=== PATIENT | female | born 1930 | race Caucasian/White ===

== ENCOUNTER 2017-06-22 20:51 | Inpatient (IN) ==
[2017-06-22] MEDS ORDERED: NITROGLYCERIN 2% OINT 1 INCH/GM PACK TOP STA (22:00)
[2017-06-22] MEDS ORDERED: ALUM/MAG/SIMETH/LIDO VISC 1:1 30 ML BOTTLE PO STA (22:06)
[2017-06-22] MEDS ORDERED: MORPHINE 2 MG/1 ML SYRINGE IV STA (22:06)
[2017-06-22] MEDS ORDERED: ONDANSETRON 4 MG/2 ML VIAL IV STA (22:06)
[2017-06-22] MEDS ORDERED: ONDANSETRON 4 MG/2 ML VIAL ONE (22:12)
[2017-06-22] MEDS ORDERED: ALUM/MAG/SIMETH/LIDO VISC 1:1 30 ML BOTTLE PO ONE (22:12)
[2017-06-22] MEDS ORDERED: MORPHINE 4 MG/1 ML VIAL ONE (22:12)
[2017-06-22] MEDS ORDERED: NITROGLYCERIN 2% OINT 1 INCH/GM PACK TOP ONE (22:12)
[2017-06-22 22:37] LABS: Basophils % 0.6 % (0.0-0.8); Eosinophils % 0.2 % (0.00-10.9); Hematocrit 33.6 VOL% (35.7-47.0); Hemoglobin 10.8 GM/DL (12.0-16.0); Immature Granulocytes % 0.5 %; Immature Granulocytes Absolute 0.03 #; Lymphocytes # 2.1 10*3/uL (1.4-4.0); Lymphocytes % 33.5 % (21.3-54.2); Mean Corpuscular HGB Conc 32.1 GM/DL (32-36); Mean Corpuscular Hemoglobin 30 PG (27-34); Mean Corpuscular Volume 93.6 FL (87-102); Monocytes # 0.5 10*3/uL (0.11-0.8); Monocytes % 8.2 % (1.7-12.7); Neutrophils # 3.6 10*3/uL (1.4-7.4); Platelet Count 286 T/CUMM (130-400); Red Blood Count 3.59 MC/CUMM (3.8-5.5); Red Cell Distribution Width 14.5 % (9.3-17.3); White Blood Count 6.4 T/CUMM (4-12)
[2017-06-22 22:41] LABS: Albumin 3.4 G/DL (3.4-5.0); Bilirubin,Total 0.4 MG/DL (0.2-1.0); Calcium 8.8 MG/DL (8.5-10.1); Osmolality,Calculated 278.8 MOS/KG (273-304); PT Patient Result 10.2 SECS; Total Protein 7.4 G/DL (6.4-8.3)
[2017-06-22] MEDS ORDERED: hydrALAZINE 20 MG/1 ML VIAL IV STA (23:45)
[2017-06-23] MEDS ORDERED: hydrALAZINE 20 MG/1 ML VIAL ONE (00:13)
[2017-06-23] MEDS ORDERED: MAGNESIUM SULF RIDER 2 GM in PREMIX 1 EACH IV PRN (01:37)
[2017-06-23] MEDS ORDERED: MAGNESIUM SULF RIDER 4 GM in PREMIX 1 EACH IV PRN (01:37)
[2017-06-23] MEDS ORDERED: BUMETANIDE 1 MG TABLET PO PRN (01:37)
[2017-06-23] MEDS ORDERED: ONDANSETRON 4 MG/2 ML VIAL IV PRN (01:37)
[2017-06-23] MEDS ORDERED: cloNIDine 0.1 MG TABLET PO PRN ×2 (01:37→10:00)
[2017-06-23] MEDS ORDERED: ED A HIST PO PRN (01:37)
[2017-06-23] MEDS ORDERED: MORPHINE 4 MG/1 ML VIAL IV PRN (01:37)
[2017-06-23] MEDS: SODIUM CHLORIDE 0.9% 1,000 ML IV SCH (02:30)
[2017-06-23] MEDS: NITROGLYCERIN 2% OINT 1 INCH/GM PACK TOP SCH ×2 (02:41→05:10)
[2017-06-23 05:22] LABS: Basophils % 0.9 % (0.0-0.8); Eosinophils % 0.2 % (0.00-10.9); Hematocrit 30.7 VOL% (35.7-47.0); Hemoglobin 10.5 GM/DL (12.0-16.0); Immature Granulocytes % 0.2 %; Immature Granulocytes Absolute 0.01 #; Lymphocytes # 1.8 10*3/uL (1.4-4.0); Mean Corpuscular HGB Conc 34.2 GM/DL (32-36); Mean Corpuscular Hemoglobin 31 PG (27-34); Mean Corpuscular Volume 90.6 FL (87-102); Mean Platelet Volume 9.8 FL (9.6-12.0); Monocytes # 0.3 10*3/uL (0.11-0.8); Monocytes % 7.8 % (1.7-12.7); Neutrophils # 2.2 10*3/uL (1.4-7.4); Neutrophils % 49.9 % (38.7-73.9); Platelet Count 267 T/CUMM (130-400); Red Blood Count 3.39 MC/CUMM (3.8-5.5); Red Cell Distribution Width 14.6 % (9.3-17.3); White Blood Count 4.3 T/CUMM (4-12)
[2017-06-23 06:25] LABS: Albumin 2.9 G/DL (3.4-5.0); Bilirubin,Total 0.9 MG/DL (0.2-1.0); Osmolality,Calculated 280.4 MOS/KG (273-304); Potassium 3.8 MMOL/L (3.5-5.1); Total Protein 6.1 G/DL (6.4-8.3)
[2017-06-23] MEDS ORDERED: POTASSIUM CHLORIDE PO SCH (09:00)
[2017-06-23] MEDS ORDERED: CARVEDILOL 6.25 MG TABLET PO SCH ×2 (09:00→10:00)
[2017-06-23] MEDS ORDERED: FERROUS SULFATE 325 MG TABLET PO SCH (09:00)
[2017-06-23] MEDS ORDERED: AMIODARONE HCL PO SCH (09:00)
[2017-06-23] MEDS ORDERED: FAMOTIDINE PO SCH (09:00)
[2017-06-23] MEDS ORDERED: APIXABAN 2.5 MG TABLET PO SCH (09:00)
[2017-06-23] MEDS: PANTOPRAZOLE 40 MG TABLET PO SCH (10:28)
[2017-06-23] MEDS: DIPHENOXYLATE/ATROPINE 2.5-0.025 MG TABLET PO SCH (10:28)
[2017-06-23] MEDS: FLUTICASONE 50 MCG NASAL SPRAY 16 GM BOTTLE BOTH NARES SCH (10:28)
[2017-06-23] MEDS: CARVEDILOL 6.25 MG TABLET PO SCH ×2 (10:28→17:16)
[2017-06-23] MEDS: FAMOTIDINE 20 MG TABLET PO SCH ×2 (10:28→21:57)
[2017-06-23] MEDS: CHOLECALCIFEROL 1,000 UNIT TABLET PO SCH (10:28)
[2017-06-23] MEDS: FERROUS SULFATE 325 MG TABLET PO SCH ×2 (10:29→21:57)
[2017-06-23] MEDS: POTASSIUM CHLORIDE 10 MEQ TABLET PO SCH (10:29)
[2017-06-23] MEDS: AMIODARONE 200 MG TABLET PO SCH (10:29)
[2017-06-23] MEDS: APIXABAN 2.5 MG TABLET PO SCH ×2 (10:29→21:57)
[2017-06-23] MEDS ORDERED: diphenhydrAMINE CAP 25 MG CAPSULE PO PRN (15:19)
[2017-06-23] MEDS ORDERED: ZALEPLON 5 MG CAPSULE PO PRN (15:19)
[2017-06-23] MEDS ORDERED: BISACODYL 5 MG TABLET PO PRN (15:19)
[2017-06-23] MEDS ORDERED: guaiFENesin/DM ER 600-30 MG TABLET PO PRN (15:19)
[2017-06-24] MEDS: SODIUM CHLORIDE 0.9% 1,000 ML IV SCH (02:48)
[2017-06-24] MEDS: APIXABAN 2.5 MG TABLET PO SCH (09:13)
[2017-06-24] MEDS: CHOLECALCIFEROL 1,000 UNIT TABLET PO SCH (09:13)
[2017-06-24] MEDS: FAMOTIDINE 20 MG TABLET PO SCH (09:13)
[2017-06-24] MEDS: DIPHENOXYLATE/ATROPINE 2.5-0.025 MG TABLET PO SCH (09:13)
[2017-06-24] MEDS: PANTOPRAZOLE 40 MG TABLET PO SCH (09:13)
[2017-06-24] MEDS: FERROUS SULFATE 325 MG TABLET PO SCH (09:13)
[2017-06-24] MEDS: AMIODARONE 200 MG TABLET PO SCH (09:13)
[2017-06-24] MEDS: POTASSIUM CHLORIDE 10 MEQ TABLET PO SCH (09:14)
[2017-06-24] MEDS: CARVEDILOL 6.25 MG TABLET PO SCH (09:14)
[2017-06-24] MEDS: FLUTICASONE 50 MCG NASAL SPRAY 16 GM BOTTLE BOTH NARES SCH (09:14)
[2017-06-24 11:26] VITALS: BP 140/84
== END 2017-06-24 13:02 | disposition home health service (06) | DRG 313 ==
LOC: N.ED 20:51 → N.EDINP 23:56 → N.TELEN 06-23 00:28
PROVIDERS: ADMIT Internal Medicine Cardiovascular Disease; ATTEND Internal Medicine Cardiovascular Disease